=== PATIENT | male | born 1975 | race Caucasian/White ===

== ENCOUNTER 2024-03-11 14:50 | Emergency (ER) | payer OTHER, MEDICAID, SELFPAY ==
--- NOTE | 2024-03-11 15:44 | ED_ITS ---
HPI - Wound/Laceration General Chief Complaint: Wound/Laceration Stated Complaint: Laceration inner L thigh Time Seen by Provider: 03/11/24 19:24 History of Present Illness HPI narrative: This is a 48-year-old previously healthy man who presents for evaluation of left thigh laceration. History is obtained utilizing [employer] audio translator and interpreter. Patient states that he was at work cutting some vinyl and accidentally cut himself on the left leg. Patient states that this happened earlier prior to presentation. Patient states that he has no previous medical conditions, takes no medications and has never had surgery. He states his last tetanus immunization was approximately 4-5 years ago, but he states he is unsure of exactly when. He states no allergies to medications. He states no other complaints. Related Data Previous Rx's ?Medication ?Instructions ?Recorded neomycin-bacitracn Zn-polymyx 3.5 1 appl topical BID 9 days #14.2 03/11/24 mg-400 unit-5,000 unit/gram top grams oint (Neosporin ([id number])) Allergies Allergy/AdvReac Type Severity Reaction Status Date / Time No Known Allergies Allergy Verified 03/11/24 15:56 Review of Systems Review of Systems: ROS as per HPI [facility] Social History Social History Advance Directives: No Advance Directives Information Provided: No Physical Exam Vital Signs: Vital Signs: Last Vital Signs Temp 97.6 F 03/11/24 15:55 Pulse 77 03/11/24 15:55 Resp 16 03/11/24 15:55 BP 139/81 03/11/24 15:55 Pulse Ox 98 03/11/24 15:55 O2 Del Method Room Air 03/11/24 15:55 BMI result Body Mass Index 22.8 Gen: NAD, AOx3 HEENT: NCAT, EOMI, normal conjunctiva CV: RRR, 2+ bilateral DP/PT pulses Pulm: CTAB, no increased work of breathing GI: Soft, NTND, no rebound, guarding or rigidity MSK: 5 cm linear subcutaneous, hemostatic laceration to left distal medial thigh Neuro: Grossly non focal, sensation intact to light touch in bilateral lower extremity dermatomes L3-S2 Course Course Course Narrative: This is a rapid medical exam performed by Savannah Marcus NP: Additional HPI, ROS, PE not included below will be deferred to primary provider. Patient is a 49-year-old male presenting to the emergency department from [facility] for laceration to left inner thigh. He accidentally cut himself with a razor while ripping up carpet. He applied his belt as a tourniquet. Belt removed at [facility], but [facility] concerned with depth of wound. No active bleeding. Last Tdap 4 yrs ago. Wound is linear, 5cm, visible subcutaneous tissue, will need sutures. Medications Administered Discontinued Medications Generic Name Dose Route Start Last Admin Trade Name Amy PRN Reason Stop Dose Admin Lidocaine HCl 20 ml 03/11/24 19:42 03/11/24 19:54 Lidocaine Hcl 1 % 20 Ml Vial SUBCUT 03/11/24 19:43 Not Given ONCE ONE Medical Decision Making Medical Decision Making MDM Narrative: Differential diagnosis includes, but is not limited to laceration, abrasion. Patient is afebrile and hemodynamically stable on room air. Exam is notable for laceration to the left thigh, which is repaired without complication (please see above procedure note for details). There are no exam findings to suggest superimposed infection. Patient's laceration repair is dressed with nonadherent gauze and Kerlix. Given that patient states his last tetanus immunization was approximately 4-5 years boot he is uncertain, his immunization for tetanus is updated today. On re-examination, patient is well-appearing and in no acute distress. His laceration is hemostatic. There is no indication for further emergent evaluati on in this otherwise well-appearing patient as above. ?Discharge instructions provided utilizing [employer] audio translator and interpreter. Patient is provided written and verbal instructions, educational materials, prescription for topical antibiotic ointment, recommendations for outpatient follow-up, strict return precautions and teach back is performed. ?He is instructed to return to the emergency room or urgent care center for suture removal in 10 days. Patient states understanding and agreement with plan of care. ?Patient is discharged home in stable and improved condition. Procedures Laceration Laceration 1: Site: lower extremity (Distal medial left thigh) Side (If applicable): left Size (cm): 5 Description: linear and clean Depth: simple, single layer Local Anesthetic: lidocaine 1% Amount of anesthesia used (mL): 6 Pre-repair: irrigated extensively Skin layer closed with: nylon Size (cm): 4-0 Number of sutures: 7 Technique: simple, interrupted Discharge Plan Discharge Clinical Impression: Laceration Patient Disposition: Home, Self-Care Instructions: Care For Your Stitches (ED) Additional Instructions: You were evaluated in the ED for a laceration. Your tetanus immunization was updated. Your laceration was repaired with sutures. Please keep dry for 24 hours. Please clean with soap and water after 24 hours. After your first wash, please begin applying an antibiotic ointment. Your prescription for this ointment has been sent to [facility] located at [address] [place] [address] in [facility]. Please continue applying twice daily as prescribed. Please return to the emergency room or an urgent care center for suture removal in 10 days. Please return to the emergency room with any new injuries or concerns of infection to your wound such as with swelling, redness, pain or drainage of pus. Vas obstezhyly u viddilenni shvydkoyi dopomohy na nayavnist? rozryvu. Vashi shcheplennya vid pravtsya onovleno. Vashu rvanu ranu zashyly shvamy. [place] trymayte sukhym protyahom 24 hodyn. [place] ochystit? vodoyu z mylom cherez 24 hodyny. Pislya pershoho myttya pochnit? nanosyty edilma? z antybiotykom. Vash retsept na tsyu edilma? bulo nadislano do [facility], [facility] [address] [place] [address]?s[place], prodovzhuyte zastosovuvaty dvichi na den?, yak jessica peredbacheno. [place] povernit?sya do viddilennya nevidkladnoyi dopomohy abo tsentru nevidkladnoyi dopomohy dlya znyattya shviv cherez 10 dniv. [place] povernit?sya do viddilennya nevidkladnoyi dopomohy z bud?-yakymy novymy travmamy abo zahrozoyu infikuvannya félix napryklad z nabryakom, pochervoninnyam, bolem abo vydilennyam hnoyu. Prescriptions: New Neosporin ([id number]) 3.5mg-400 unit- 5,000 unit/gram ointment 1 appl topical BID 9 Days Qty: 14.2 0RF Print Language: [place]
[2024-03-11 15:55] VITALS: BP 139/81; PULSE 77; RESP 16; TEMP 36.4; O2SAT 98; BMI 22.8
--- NOTE | 2024-03-11 19:55 | PC.NURSE ---
laceration to L. inner thigh irrigated with sterile water. Dr. Jacinto at bedside to suture.
[2024-03-11] MEDS: Diphth,Pertus(ACell),Tet Adult 0.5 ML SYRINGE IM (20:42)
[2024-03-11 20:45] VITALS: BP 139/77; PULSE 69; RESP 20; TEMP 36.9; O2SAT 97
[2024-03-11 20:47] VITALS: BP 139/77; PULSE 69; RESP 20; TEMP 36.9; O2SAT 97
[2024-03-11] MEDS: Lidocaine HCl 1 % 20 ML VIAL SUBCUT (20:49)
== END 2024-03-11 20:49 | disposition home or self-care (01) ==
PROVIDERS: Emergency Provider Emergency Medicine
DX: S71.112A Laceration without foreign body, left thigh, initial encounter (principal); W26.9XXA Contact with unspecified sharp object(s), initial encounter; Y93.89 Activity, other specified; Y92.89 Other specified places as the place of occurrence of the external cause; Y99.0 Civilian activity done for income or pay
CPT/HCPCS: 12002; 90471; 90715; 99283; 99284